=== PATIENT | male | born 1965 | race Caucasian/White ===

== ENCOUNTER 2018-01-15 07:37 | Emergency (ER) | payer OTHER ==
[~2018-01-15] VITALS: Ht 180.3 cm; Wt 75.8 kg
[~2018-01-15 07:37] MED LIST: IBUP-1050 PO
[2018-01-15 07:48] VITALS: TEMP 36.5; Ht 180.3 cm; Wt 75.8 kg
[2018-01-15 07:53] VITALS: O2SAT 100
[2018-01-15] MEDS ORDERED: TRAM-10 PO (08:09)
[2018-01-15] MEDS ORDERED: ANS100 PO (08:09)
[2018-01-15] MEDS ORDERED: SODIUM CHLORIDE 0.9% 1000ML 1,000 ML IV STA (08:33)
--- NOTE | 2018-01-15 09:01 | DIAGNOSTIC IMAGING REPORT ---
CHEST ONE VIEW PORTABLE CLINICAL HISTORY: CHEST PAIN dyspnea COMPARISON STUDY: 02/12/2016 FINDINGS: The bones soft tissues and hemidiaphragms are normal. The cardiomediastinal silhouette is normal. The lungs are clear. The pulmonary vasculature is normal. IMPRESSION: Negative chest. The above report was generated using voice recognition software. It may contain grammatical, syntax or spelling errors. Electronically signed by: Jose Starr M.D. 01/15/2018 9:00 AM Dictated Date/Time: 01/15/2018 9:00 AM
[2018-01-15 09:02] LABS: BASO % 0.5 %; BASO ABS # 0.04 K/uL (0-0.2); EOS % 1.7 %; EOS ABS # 0.14 K/uL (0-0.5); HEMATOCRIT 39.3 % (42-52); HEMOGLOBIN 13.4 g/dL (14.0-18.0); IG# 0.02 K/uL (0.00-0.02); LYMPH % 18.9 %; MEAN CELL VOLUME 86.8 fL (80-100); MEAN CORPUSCULAR HEMOGLOBIN 29.6 pg (25-34); MEAN CORPUSCULAR HGB CONC 34.1 g/dl (32-36); MEAN PLATELET VOLUME 10.8 fL (7.4-10.4); MONO % 7.3 %; MONO ABS # 0.62 K/uL (0.11-0.59); NEUT % 71.4 %; NEUT ABS # 6.04 K/uL (1.4-6.5); PLATELET COUNT 266 K/uL (130-400); RED CELL DISTRIBUTION WIDTH CV 13.2 % (11.5-14.5); RED CELL DISTRIBUTION WIDTH SD 42.3 fL (36.4-46.3); WHITE BLOOD COUNT 8.46 K/uL (4.8-10.8)
[2018-01-15 09:23] LABS: ALBUMIN 3.4 gm/dl (3.4-5.0); ALT/SGPT 24 U/L (12-78)
[2018-01-15 09:39] LABS: ALKALINE PHOSPHATASE 48 U/L (45-117); BLOOD UREA NITROGEN 22 mg/dl (7-18); CALCIUM 8.3 mg/dl (8.5-10.1); CARBON DIOXIDE 23 mmol/L (21-32); CREATININE 0.68 mg/dl (0.60-1.40); GLUCOSE 91 mg/dl (70-99); LIPASE 267 U/L (73-393); SODIUM 139 mmol/L (136-145); TOTAL PROTEIN 6.8 gm/dl (6.4-8.2)
[2018-01-15 09:41] LABS: AST/SGOT 15 U/L (15-37)
[2018-01-15] MEDS ORDERED: PRED20TA2 PO (10:35)
[2018-01-15] MEDS ORDERED: NEOM1SUS21 OP (10:35)
[2018-01-15] MEDS ORDERED: OPTIRAY 320 IV PRN (11:15)
--- NOTE | 2018-01-15 11:34 | DIAGNOSTIC IMAGING REPORT ---
FACIAL-MAXILLOFACIAL WITH CLINICAL HISTORY: long hx R ear pain; near syncope today; ? tumor TECHNIQUE: Transaxial acquisition of multi axial reformatted images. COMPARISON STUDY: None FINDINGS: All major soft tissue and osseous structures of the maxillofacial facial region are unremarkable. No evidence for abnormal mass or collection. Operative changes consistent with bilateral antral window placement involving the sinuses. Minimal sclerosis of the mastoid air cells. Structures of the middle ear appear unremarkable. Middle ear ossicles are intact. IMPRESSION: No acute process. No evidence for mass or collection. The above report was generated using voice recognition software. It may contain grammatical, syntax or spelling errors. Electronically signed by: Jose Starr M.D. 01/15/2018 11:33 AM Dictated Date/Time: 01/15/2018 11:27 AM
[2018-01-15 11:37] VITALS: BP 114/74; PULSE 58; O2SAT 100
--- NOTE | 2018-01-16 06:11 | EMERGENCY ROOM VISIT NOTE ---
ED Visit Note First contact with patient: 07:40 Chief Complaint: Right ear pain and dizziness. History of Present Illness: Mr. Yadav is a 52-year-old white male who is brought into the ED via ambulance complaining of right ear pain and dizziness. Historically patient reports that he has been having ongoing ear pain for the last 1.5 years. He reports he has been seen by ENT. He reports they felt this was related to possible TMJ syndrome and he has been in physical therapy. Patient reports he has been feeling his normal self over the last few days. He has his normal chronic ear pain but it has not been severe. He reports just prior to coming to the hospital he was driving to work and reported an moderate increase in his ear pain and then started noting the development of tunnel vision, decreased hearing in both ears, paresthesias of the hands, what he describes as initially dizziness and sensations that his heart rate was slowing. He was able to pull off the road and a bystander checked on him and he reports he was feeling well and EMS was activated. EMS reports when they evaluated the patient they found him to be bradycardic and hypotensive. On my initial evaluation patient was complaining of right ear pain. He describes this discomfort as a stabbing and throbbing sensation in the area of the tragus of the right ear with radiation inferiorly into the lower angle of the jaw and anterior lateral right neck. He rates his discomfort 8/10. His pain worsens with palpation of the external ear and depression of the tragus. He has not identified any alleviating factors related to the pain. He does report he took his normal flurbiprofen prior to leaving for work today. Associated with his pain he does report that his hearing is muffled but not decreased and he continues to have dizziness; on reevaluation of his dizziness his sensation is truly lightheadedness. He has had resolution of his tunnel vision his hand paresthesias and sensations of decreased heart rate. He did report he had imaging studies at the beginning of his evaluation for his ear discomfort from the [facility]; I was able to receive records on a mandibular x-ray series which showed unremarkable plain films with well seated normal TMJ joints without arthritis, no abnormal bony lesions and a C5- C6 anterior spinal fusion and a contrast CT neck which showed no acute findings , masses and status post C5-C6 fusion. Additionally during physical examination and is found that he does daily cleaning his ears with Q-tips. He denies fevers, chills, sweats, skin eruptions, skin color changes, recent head/facial trauma, headache, visual changes, difficulty swallowing, upper respiratory tract symptoms, chest pain, shortness of breath, abdominal pain, decreased appetite, nausea/vomiting, neck pain/stiffness, extremity weakness. Review of Systems: As noted above in history of present illness. All body systems were reviewed and found to be negative as noted above. Past Medical History: As previously noted and seasonal allergies, unspecified neck and nasal surgery. Current Medications: Ultram, flurbiprofen. Allergies to Medications: Patient denies. Social History: Patient is currently employed; he feels safe in his home environment; he admits to tobacco and alcohol use. Physical Examination: Vital Signs: Date Time Temp Pulse Resp B/P (MAP) Pulse Ox O2 Delivery O2 Flow Rate FiO2 01/15/18 11:37 58 18 114/74 100 Room Air 01/15/18 10:54 63 18 123/76 99 Room Air 01/15/18 09:23 60 20 100/64 100 Room Air 01/15/18 08:41 48 103/53 52 74/49 58 86/54 01/15/18 07:57 49 01/15/18 07:53 100 Room Air 01/15/18 07:48 36.5 54 20 114/62 100 Room Air GENERAL: 52-year-old male in mild to moderate distress due to pain, nontoxic- appearing, afebrile and hemodynamically stable. NEUROLOGICAL: Awake, alert and oriented to person, place and time. Answering questions appropriately and following commands. Normal gait. Romberg test negative. Pronator drift test negative. Cranial nerves II through XII grossly intact. Good short-term and long-term recall. Good hand eye coordination. No focal motor or sensory deficits. SKIN: Warm, dry and pink. No soft tissue eruptions or trauma noted. HEENT: Atraumatic and normocephalic. No erythema or tenderness over the frontal or maxillary sinuses. Right external ear shows tenderness to tragal depression. The right auditory canal is erythematous and edematous excluding view of tympanic membrane. The left auditory canal is pink and patent. The left tympanic membrane shows no erythema or edema. PERRL. EOMI without nystagmus. Sclera white and conjunctiva pink. No drainage from naris. Oral cavity moist and pink. Decreased opening of the mouth due to his chronic pain. Pharynx is nonerythematous or edematous. Airway is patent. Speech normal and clear. It is noted that he does have right deviation of the tongue; I did question him about this and he reports this is been an ongoing problem since his initial ear pain. No lymphadenopathy. Trachea midline. No jugular venous distention. No carotid bruits. BACK: No tenderness over the bony cervical and thoracic spine. No nuchal rigidity or meningismus. Full range of motion of the cervical spine. No CVA tenderness. THORAX: Lungs sounds are clear to auscultation and equal bilaterally with symmetrical chest wall. No wheezing, rales or rhonchi. No crepitus, tenderness , subcutaneous air or deformities noted. HEART: Regular rate and rhythm. No gallops, rubs or murmurs are appreciated. ABDOMEN: Flat, soft and nontender. Positive bowel sounds in all quadrants. No guarding, rigidity or organomegaly. EXTREMITIES: Moves all extremities well on command and with purpose. All distal neurovascular statuses are intact and equal bilaterally. 4/5 muscle strength in all movements of the upper and lower extremity joints. ED Course: Patient is assessed as noted above. Patient's medication list was reviewed. Laboratory Testing: Test 01/15/18 08:50 01/15/18 10:15 Range/Units White Blood Count 8.46 4.8-10.8 K/uL Red Blood Count 4.53 4.7-6.1 M/uL Hemoglobin 13.4 14.0-18.0 g/dL Hematocrit 39.3 42-52 % Mean Corpuscular Volume 86.8 80-100 fL Mean Corpuscular Hemoglobin 29.6 25-34 pg Mean Corpuscular Hemoglobin Concent 34.1 32-36 g/dl Platelet Count 266 130-400 K/uL Mean Platelet Volume 10.8 7.4-10.4 fL Neutrophils (%) (Auto) 71.4 % Lymphocytes (%) (Auto) 18.9 % Monocytes (%) (Auto) 7.3 % Eosinophils (%) (Auto) 1.7 % Basophils (%) (Auto) 0.5 % Neutrophils # (Auto) 6.04 1.4-6.5 K/uL Lymphocytes # (Auto) 1.60 1.2-3.4 K/uL Monocytes # (Auto) 0.62 0.11-0.59 K/uL Eosinophils # (Auto) 0.14 0-0.5 K/uL Basophils # (Auto) 0.04 0-0.2 K/uL RDW Standard Deviation 42.3 36.4-46.3 fL RDW Coefficient of Variation 13.2 11.5-14.5 % Immature Granulocyte % (Auto) 0.2 % Immature Granulocyte # (Auto) 0.02 0.00-0.02 K/uL D-Dimer 420 0-500 ug/L FEU Sodium Level 139 136-145 mmol/L Potassium Level 4.0 3.5-5.1 mmol/L Chloride Level 108 98-107 mmol/L Carbon Dioxide Level 23 21-32 mmol/L Anion Gap 8.0 3-11 mmol/L Blood Urea Nitrogen 22 7-18 mg/dl Creatinine 0.68 0.60-1.40 mg/dl Est Creatinine Clear Calc Drug Dose 132.2 ml/min Estimated GFR () 125.5 Estimated GFR (Non- 108.3 BUN/Creatinine Ratio 32.4 10-20 Random Glucose 91 70-99 mg/dl Calcium Level 8.3 8.5-10.1 mg/dl Total Bilirubin 0.6 0.2-1 mg/dl Direct Bilirubin 0.2 0-0.2 mg/dl Aspartate Amino Transf (AST/SGOT) 15 15-37 U/L Alanine Aminotransferase (ALT/SGPT) 24 12-78 U/L Alkaline Phosphatase 48 45-117 U/L Troponin I < 0.015 0-0.045 ng/ml Total Protein 6.8 6.4-8.2 gm/dl Albumin 3.4 3.4-5.0 gm/dl Lipase 267 73-393 U/L Urine Color DK YELLOW Urine Appearance CLEAR CLEAR Urine pH 7.0 4.5-7.5 Urine Specific [place] 1.026 1.000-1.030 Urine Protein NEG NEG Urine Glucose (UA) NEG NEG Urine Ketones 2+ NEG Urine Occult Blood NEG NEG Urine Nitrite NEG NEG Urine Bilirubin NEG NEG Urine Urobilinogen NEG NEG Urine Leukocyte Esterase NEG NEG EKG: Read by myself and shows normal sinus rhythm with a ventricular rate of 60 bpm. Normal axis, intervals and complexes. No acute ST changes indicating ischemia, injury or infarction. This was compared to a previous from January 2016 and no acute changes were noted. Facial CT with Contrast: Myself and read by the radiologist and shows no acute processes, masses or collections. Operative changes consistent with bilateral antral window placement involving the sinuses. Minimal sclerosis of the mastoid air sinuses. Structures of the middle ear are unremarkable and middle ear ossicles are intact. Patient was hydrated with normal saline; he was offered pain medications and refused. Patient was reassessed multiple times during his stay in the emergency department. Patient's case was reviewed with Dr. Mchugh; we agreed on diagnostic approach, treatment, disposition and plan. Patient was educated about today's findings and instructed on his treatment plan ; he verbalized understanding and agreement with this plan. Clinical Impression: Acute right otitis externa. Acute on chronic right ear pain. Near syncope. Decision-Making: Initially my differential diagnosis I considered otitis externa , otitis media, otitis interna, acoustical neuroma, exacerbation of TMJ syndrome , temporal arteritis, pulmonary emboli, acute coronary syndrome and other causes. Disposition: Patient discharged home in stable condition accompanied by his ; prior to departure he was reassessed and subjectively reported that he was pain and symptom-free. Plan: Patient was encouraged to continue his current medications as prescribed. Patient was encouraged alternate ibuprofen and acetaminophen every 3 hours as needed for patient was prescribed Cortisporin Otic suspension and encouraged to use 4 drops in the right ear canal 4 times a day for 5-7 days. Patient was prescribed prednisone 40 mg once a day for 5 days for inflammation. Patient was encouraged to stay well-hydrated with increased clear fluids. Patient was encouraged not to put anything or allow anything in the right ear canal including water from bathing. Patient was encouraged to follow-up with his PCP for recheck and possible referral back to ENT. Patient was encouraged return the ED for worsening pain, worsening hearing changes, ear drainage, headaches, any episodes of near syncope, fevers or any new/concerning symptoms
== END 2018-01-15 11:47 | disposition home or self-care (01) ==
LOC: EDBD 07:37 → C.EDA 07:38
DX: H60.501 Unspecified acute noninfective otitis externa, right ear (principal); H92.01 Otalgia, right ear; R55 Syncope and collapse; Z79.899 Other long term (current) drug therapy; F17.200 Nicotine dependence, unspecified, uncomplicated